=== PATIENT | female | born 1995 | race Caucasian/White ===

== ENCOUNTER 2018-04-22 23:36 | Emergency (ER) | payer BC ==
[~2018-04-22] VITALS: Ht 160 cm; Wt 47.6 kg
[2018-04-22 23:36] VITALS: BP 136/78
--- NOTE | 2018-04-22 23:36 | NUR ---
PATIENT AMBULATED TO ER BED 9.
--- NOTE | 2018-04-22 23:40 | NUR ---
22 YO F BIB MOTHER. C/O SMALL ROUND ABCESS ON INNER LEFT BUTTOCK; 8/10 PAIN IN AREA. PT DENIES N/V/D; SKIN IS INTACT, PINK/WARM/DRY. SMALL ROUND SLIGHTLY RED ABCESS ON INNER LEFT BUTTOCK AREA; SLIGHT ELEVATED. AAOX4, PERRL, WITH EVEN AND STEADY GAIT; LUNGS CLEAR BL, BREATHING UNLABORED; HR EVEN AND REGULAR, BL PERIPHERAL PULSES PRESENT; BS ACTIVE X4, NO TENDERNESS TO PALPATION, NO HEPATOSPLENOMEGALLY PALPATED, RESONANT TO PERCUSSION; PT DENIES ANY FEVER, CP, SOB, OR COUGH AT THIS TIME; VSS; PATIENT POSITIONED FOR COMFORT; HOB ELEVATED; BEDRAILS UP X1; BED DOWN.
--- NOTE | 2018-04-22 23:49 | NUR ---
PT UP TO BATHROOM. AMBULATORY W/STEADY GATE.
--- NOTE | 2018-04-23 00:20 | NUR ---
Patient discharged with v/s stable. Written and verbal after care instructions given and explained. Patient alert, oriented and verbalized understanding of instructions. Ambulatory with steady gait. All questions addressed prior to discharge. ID band removed. Patient advised to follow up with PMD. Rx of Mupirocin, Clindamycin and Naproxen given. Patient educated on indication of medication including possible reaction and side effects. Opportunity to ask questions provided and answered.
[2018-04-23 00:22] VITALS: BP 135/80
== END 2018-04-23 00:20 | disposition home or self-care (01) ==
LOC: MED 23:36
DX: L02.31 Cutaneous abscess of buttock (principal); Z88.1 Allergy status to other antibiotic agents; Z88.8 Allergy status to other drugs, medicaments and biological substances
CPT/HCPCS: 99283